=== PATIENT | male | born 1990 | race Hispanic/Latino ===

== ENCOUNTER 2022-09-03 12:27 | Emergency (ER) | payer SELFPAY ==
[2022-09-03 12:30] VITALS: BP 109/79; PULSE 93; RESP 14; TEMP 36.3; O2SAT 97; BMI 27.4
--- NOTE | 2022-09-03 14:13 | ED.VIS.GI ---
HPI HPI - GI History of Present Illness Chief Complaint: Diarrhea Narrative Narrative: 31-year-old Serbian-speaking male presenting with diarrhea for 3 days. 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 Denies black or bloody stools. He states he thinks he had a low-grade fever initially. He reports that at his work he may have eaten some undercooked pork or beef. He states that nobody else got sick the day that they were giving his food out. He denies cough, shortness of breath. No body aches. Patient states he had multiple episodes of diarrhea and thinks he is lost about 7 pounds over 3-day interval. He states he feels weak. He has been able to walk and has not had any falls. Denies abdominal pain. PFSH PFSH Medical History no medical history Allergy/AdvReac Type Severity Reaction Status Date / Time No Known Allergies Allergy Verified 09/03/22 12:32 Social History Smoking Status: Never smoker ROS ROS ED Constitutional Constitutional ED: Reports fever(s) ENT ENT ED: Denies rhinorrhea or sore throat Cardiovascular Cardiovascular: Denies chest pain Respiratory/Chest Respiratory/Chest: Denies cough or dyspnea Gastrointestinal Gastrointestinal: Reports diarrhea; Denies abdominal pain Genitourinary Genitourinary ED: Denies dysuria or hematuria Musculoskeletal Musculoskeletal: Denies arthralgias Integumentary Denies abscess or Abrasions Neurologic Neurologic: Denies headache(s) or paresthesias EXAM Physical Exam Const Vital Signs: 09/03/22 12:30 Temperature 97.4 F L Temperature Source Temporal Pulse Rate 93 Respiratory Rate 14 Blood Pressure 109/79 Blood Pressure Mean 89 Pulse Ox 97 Oxygen Delivery Method Room Air Positive well nourished General Appearance ED: NAD HEENT Reports TM's clear and moist mucous membranes Tympanic Membrane ED: Yes TM's clear Eyes PERRL and EOMs intact bilaterally Resp normal respiratory effort and clear to auscultation bilaterally Auscultation: Negative for rales, rhonchi or wheezes Cardio regular rate and regular rhythm GI non-tender, non-distended and no masses Back/Spine no CVA tenderness Neuro CN's II-XII intact bilaterally, moves all extremities and no sensory deficits noted Sensorium / Orientation: alert, oriented to person, oriented to place and oriented to time Motor Exam: strength 5/5 throughout Psych mental status grossly normal Skin no wounds MDM MDM MDM Narrative Medical decision making narrative: 31-year-old male with diarrhea. Most likely this is a viral cause but patient states he ate some food that he thought was undercooked that was given out by his job site 3 days ago. He reports that nobody else was sick. Patient complains he has a 7 pound weight loss and he feels weak. We will obtain a basic lab including CBC and BMP. Patient was given a liter of normal saline. CBC within normal limits. CMP shows normal renal function and electrolytes. AST slightly elevated at 38, ALT 105, alkaline phosphatase 120. He is nonspecific. Patient not having any abdominal pain. Patient counseled that this is likely viral in nature and will take time to work its way out of his system. He does not have any nausea or vomitings please counseled bland diet and to hydrate. Return precautions discussed. Impression: 1. Diarrhea Lab Data Labs: Laboratory Results - last 24 hr 09/03/22 09/03/22 14:16 14:16 WBC 5.4 RBC 5.22 Hgb 15.6 Hct 48.2 MCV 92.3 MCH 29.9 MCHC 32.4 RDW Std Deviation 42.1 RDW Coeff of Yaz 12.4 Plt Count 326 MPV 10.0 Immature Gran % (Auto) 1.100 H Neut % (Auto) 55.1 Lymph % (Auto) 26.8 [place] % (Auto) 15.4 H Eos % (Auto) 0.9 Baso % (Auto) 0.7 Absolute Neuts (auto) 3.0 Absolute Lymphs (auto) 1.46 Nucleated RBC % 0 Sodium 138 Potassium 3.9 Chloride 109 H Carbon Dioxide 23.0 Anion Gap 6 BUN 16 Creatinine 0.86 Estim Creat Clear Calc 102.00 Est GFR (MDRD) Af Amer 134 Est GFR (MDRD) Non-Af 111 BUN/Creatinine Ratio 18.6 Glucose 98 Calcium 8.4 L Total Bilirubin 0.40 AST 38 H ALT 105 H Alkaline Phosphatase 120 H Total Protein 7.8 Albumin 3.8 Globulin 4.0 Albumin/Globulin Ratio 1.0 Discharge Plan Triage Chief Complaint: Diarrhea ED Provider: Elvin Rodriguez Dx/Rx/DC Orders Instructions: ED Diarrhea, Viral (Adult) Primary Care Provider: Care Physician,No Primary Referrals: [facility] [Outside] - 3-5 Days Care Physician,No Primary [Primary Care Provider] - Disposition Disposition: Home, Self Care
[2022-09-03] MEDS: 0.9% Normal Saline 1,000 ML 1000 ML IV (14:20)
[2022-09-03 14:26] LABS: Absolute Lymphocyte Count 1.46 X10^3/uL (0.83-4.51); Basophil# 0.04 X10^3/uL; Basophil% 0.7 % (0-1); Eosinophil# 0.05 X10^3/uL; Eosinophils% 0.9 % (0-5); Hematocrit 48.2 % (40-54); Hemoglobin 15.6 g/dL (13.0-16.5); Lymphocyte # 1.46 X10^3/ul (0.83-4.51); Lymphocyte % 26.8 % (19-41); Mean Corp Hgb Conc 32.4 g/dL (32-36); Mean Corpuscular Hgb 29.9 pg (27.0-32.0); Mean Corpuscular Volume 92.3 fL (80-94); Monocyte# 0.84 X10^3/uL; Monocyte% 15.4 % (0-10); NRBC Flagged by Analyzer 0 % (0-5); Neutrophil # 2.99 X10^3/uL (2.7-7.7); Neutrophil % 55.1 % (47-70); Platelet Count 326 K/mm3 (150-450); RBC Distribution Width CV 12.4 % (11.6-14.6); RBC Distribution Width SD 42.1 fl (35.1-43.9); Red Blood Count 5.22 M/mm3 (4.6-6.2); White Blood Count 5.4 K/mm3 (4.4-11.0)
[2022-09-03 14:49] LABS: AST(SGOT) 38 U/L (15-37); Alanine Aminotransfer ALT/SGPT 105 U/L (16-61); Albumin, Serum 3.8 g/dL (3.2-5.0); Alkaline Phosphatase 120 U/L (45-117); Anion Gap 6 (5-15); BUN 16 mg/dL (7-18); BUN/Creat Ratio 18.6 RATIO (10-20); Calcium,Total 8.4 mg/dL (8.5-10.1); Chloride 109 mmol/L (98-107); Creatinine, Serum 0.86 mg/dL (0.70-1.30); EST Glomerular Filtration Rate 111 mL/min (>60); Est Glom Filt Rate - Afr Amer 134 mL/min (>60); Glucose 98 mg/dL (74-106); Potassium 3.9 mmol/L (3.5-5.1); Protein, Total 7.8 g/dL (6.4-8.2); Sodium Level 138 mmol/L (136-145)
[2022-09-03 16:14] VITALS: BP 92/68; PULSE 83; RESP 14; O2SAT 98
== END 2022-09-03 16:15 | disposition home or self-care (01) ==
PROVIDERS: Emergency Provider Student in an Organized Health Care Education/Training Program; Visit Provider Student in an Organized Health Care Education/Training Program
DX: R19.7 Diarrhea, unspecified (principal)
CPT/HCPCS: 80053; 85025; 96360; 96361; 99283; J7030; A4216